=== PATIENT | female | born 2000 | race Caucasian/White ===

== ENCOUNTER → 2024-11-09 | Outpatient (CLI) | payer BC, SELFPAY ==
[2024-11-09 15:13] LABS: Misc Send Out* See Sep Rpt
[2024-11-09 15:15] LABS: Collection Type, Urine Clean Catch; RBC,Urine 0 /hpf (0-3)
[2024-11-09 16:03] LABS: Basophils % (Auto) 0 % (0-2.5); Eosinophils # (Auto) 0.4 Thou/mm3 (0.0-0.5); Eosinophils % (Auto) 3 % (0-10); Hematocrit 33.2 % (36.0-46.0); Hemoglobin 11.5 g/dL (12.0-16.0); Immature Granulocytes % (Auto) 0 % (0-0); Immature Granulocytes Auto 0.04 Thou/mm3 (0.00-0.00); Lymphocytes # (Auto) 1.8 Thou/mm3 (1.0-4.8); Lymphocytes % (Auto) 16 % (10-50); Mean Corpuscular HGB Conc 34.6 g/dl (31.0-37.0); Mean Corpuscular Hemoglobin 28.8 pg (25.0-35.0); Mean Corpuscular Volume 83 fL (80-100); Monocytes # (Auto) 0.6 Thou/mm3 (0.0-0.8); Monocytes % (Auto) 5 % (0-12); Neutrophils # (Auto) 8.2 Thou/mm3 (1.8-7.7); Neutrophils % (Auto) 74 % (37-80); Nucleated Red Blood Cell % 0 /100 WBC (0); Platelet Count 308 Thou/mm3 (140-440); RDW Standard Deviation 39.7 fL (36.4-46.3)
[2024-11-09 16:20] LABS: Bilirubin,Urine Negative (Negative); Blood,Urine Negative (Negative); Clarity,Urine Clear (Clear/Hazy); Color,Urine Yellow (Lt Yel-Yel); Glucose, Urine Negative (Negative); Ketones,Urine Negative (Negative); Leukocyte Esterase,Urine Negative (Negative); Nitrite,Urine Negative (Negative); Protein,Urine Trace (Neg - Trace); Specific Gravity,Urine 1.022 (1.001-1.035); Squamous Epithelial Cell,Urine 1 /hpf (0-5); Urobilinogen,Urine Negative mg/dL (0.0-1.0); WBC,Urine < 1 /hpf (0-5)
[2024-11-09 16:22] LABS: Glucose Estimated Average 94 mg/dL (80-131); Hemoglobin A1C 4.9 % Hgb (4.8-6.0)
[2024-11-09 16:31] LABS: Amphetamine/Methamp Scrn,U Negative (Negative); Barbiturate Screen,Urine Negative (Negative); Benzodiazepines Screen,Urine Negative (Negative); Benzoylecgonine Screen, Ur Negative (Negative); Fentanyl Screen,Urine Negative (Negative); Opiate Screen,Urine Negative (Negative); THC Screen,Urine Negative (Negative)
[2024-11-09 16:33] LABS: Hepatitis B Surface Antigen Non Reactive (Non React); Rubella, IgG Antibody NonReact(Not Immune)
[2024-11-09 16:56] LABS: Beta HCG,Quantitative 19236 mIU/mL (<5.0); Creatinine (Component) 0.6 mg/dL (0.6-1.3); Glucose 121 mg/dL (74-106); eGFR > 60 See Note
[2024-11-10 09:37] LABS: BVAG Candida Negative (Negative); Bacterial Vaginosis Markers Negative (Negative); Candida glabrata Negative (Negative); Candida krusei PCR Negative (Negative); Trichomonas Negative (Negative)
[2024-11-13 19:49] LABS: HCV RNA, PCR <15 NOT DETECTED IU/mL
[2024-11-14 06:40] LABS: HCV RNA, PCR Log IU <1.18 NOT DETECTED Log IU/mL; HIV Ag/Ab, 4th Gen NON-REACTIVE
== END | disposition home or self-care (01) ==
PROVIDERS: PCP Family Medicine; Referring Provider Specialist; Visit Provider Specialist
DX: O98.311 Other infections with a predominantly sexual mode of transmission complicating pregnancy, first trimester (principal); A59.01 Trichomonal vulvovaginitis; O23.591 Infection of other part of genital tract in pregnancy, first trimester; B37.89 Other sites of candidiasis; Z3A.00 Weeks of gestation of pregnancy not specified
CPT/HCPCS: 36415; 80307; 81001; 81514; 82565; 82947; 83036; 84702; 85025; 86762; 86850; 86900; 86901; 87086; 87340; 87389; 87522

== ENCOUNTER → 2024-11-21 | Outpatient (CLI) | payer BC, SELFPAY ==
[2024-11-21 09:28] LABS: Quantiferon-TB* See Sep Rpt
== END | disposition home or self-care (01) ==
LOC: COPL 08:59
PROVIDERS: PCP Specialist; Referring Provider Specialist; Visit Provider Specialist
DX: Z3A.00 Weeks of gestation of pregnancy not specified (principal)
CPT/HCPCS: 86480

== ENCOUNTER → 2025-01-12 | Outpatient (CLI) | payer BC, SELFPAY ==
[2025-01-12 15:39] LABS: Glucose,1 Hour PP 50gm Dose 132 mg/dL (80-140)
== END | disposition home or self-care (01) ==
LOC: COPL 13:38
PROVIDERS: PCP Family Medicine; Referring Provider Physician Assistant Medical; Visit Provider Physician Assistant Medical
DX: Z34.82 Encounter for supervision of other normal pregnancy, second trimester (principal)
CPT/HCPCS: 36415; 82950

== ENCOUNTER → 2025-02-02 | Outpatient (CLI) | payer BC, SELFPAY ==
[2025-02-02 15:59] LABS: Basophils % (Auto) 0 % (0-2.5); Eosinophils # (Auto) 0.3 Thou/mm3 (0.0-0.5); Eosinophils % (Auto) 2 % (0-10); Hematocrit 36.1 % (36.0-46.0); Hemoglobin 11.6 g/dL (12.0-16.0); Immature Granulocytes % (Auto) 1 % (0-0); Immature Granulocytes Auto 0.12 Thou/mm3 (0.00-0.00); Lymphocytes # (Auto) 1.5 Thou/mm3 (1.0-4.8); Lymphocytes % (Auto) 14 % (10-50); Mean Corpuscular HGB Conc 32.1 g/dl (31.0-37.0); Mean Corpuscular Hemoglobin 29.2 pg (25.0-35.0); Mean Corpuscular Volume 91 fL (80-100); Monocytes # (Auto) 0.7 Thou/mm3 (0.0-0.8); Monocytes % (Auto) 7 % (0-12); Neutrophils # (Auto) 8.2 Thou/mm3 (1.8-7.7); Neutrophils % (Auto) 76 % (37-80); Nucleated Red Blood Cell % 0 /100 WBC (0); Platelet Count 295 Thou/mm3 (140-440); RDW Standard Deviation 45.8 fL (36.4-46.3); Red Blood Count 3.97 Miln/mm3 (4.00-5.20); White Blood Count 10.8 Thou/mm3 (3.6-11.0)
[2025-02-02 16:29] LABS: Syphilis Nonreactive (Nonreactive)
== END | disposition home or self-care (01) ==
LOC: SLDO 14:18
PROVIDERS: Referring Provider Physician Assistant Medical; Visit Provider Physician Assistant Medical
DX: Z34.83 Encounter for supervision of other normal pregnancy, third trimester (principal)
CPT/HCPCS: 36415; 85025; 86780

== ENCOUNTER → 2025-03-22 | Outpatient (CLI) | payer BC, MEDICAID, SELFPAY ==
[2025-03-23 11:19] LABS: BVAG Candida Negative (Negative); Bacterial Vaginosis Markers Negative (Negative); Candida glabrata Negative (Negative); Candida krusei PCR Negative (Negative); Trichomonas Negative (Negative)
== END | disposition home or self-care (01) ==
LOC: SLDO 14:27
PROVIDERS: Referring Provider Physician Assistant Medical; Visit Provider Physician Assistant Medical
DX: Z34.83 Encounter for supervision of other normal pregnancy, third trimester (principal)
CPT/HCPCS: 81514

== ENCOUNTER 2025-03-23 13:42 | Inpatient (IN) | payer BC, MEDICAID, SELFPAY ==
[2025-03-23] VITALS (30 sets, daily range): BP systolic 108–136; BP diastolic 69–82; PULSE 70–111; RESP 11–98; TEMP 36.4–36.8; O2SAT 94–99; BMI 29.9
[2025-03-23 14:26] LABS: ROM Kit Exp Date# 111527; ROM Kit Lot # 58102387; ROM Swab Mixed By: EB; Rupture of Fetal Membranes Positive (Negative); Swb Mxed in Solvent 1 min? Yes
--- NOTE | 2025-03-23 14:49 | XR_ITS ---
Examination: Severely limited TECHNIQUE: Limited transabdominal sonographic images pelvis Date and time: March 23, 2025 1513 hours INDICATIONS: Unknown presentation. FINDINGS: Viable intrauterine gestation breech presentation head maternal left Cardiac motion 141 BPM Amniotic fluid index 1.0 cm Cervix 3.3 cm closed IMPRESSION: Viable intrauterine gestation breech presentation
[2025-03-23] MEDS: BETAMET ACET/BETAMET NA PH (Celestone) 6 MG/ML VIAL 12 MG IM (15:10)
[2025-03-23] MEDS: RINGERS LACTATED 1000 ML 1,000 ML 100 ML IV (15:46)
[2025-03-23] MEDS: Ampicillin Inj 2,000 MG in SODIUM CHLORIDE 0.9% (POP) 100 ML 200 MG IV (15:46)
[2025-03-23 16:10] LABS: Basophils # (Auto) 0.0 Thou/mm3 (0.0-0.2); Basophils % (Auto) 0 % (0-2.5); Eosinophils # (Auto) 0.2 Thou/mm3 (0.0-0.5); Eosinophils % (Auto) 2 % (0-10); Hematocrit 33.0 % (36.0-46.0); Hemoglobin 11.4 g/dL (12.0-16.0); Immature Granulocytes Auto 0.06 Thou/mm3 (0.00-0.00); Lymphocytes # (Auto) 2.1 Thou/mm3 (1.0-4.8); Lymphocytes % (Auto) 19 % (10-50); Mean Corpuscular HGB Conc 34.5 g/dl (31.0-37.0); Mean Corpuscular Hemoglobin 28.4 pg (25.0-35.0); Mean Corpuscular Volume 82 fL (80-100); Monocytes # (Auto) 0.9 Thou/mm3 (0.0-0.8); Monocytes % (Auto) 8 % (0-12); Neutrophils # (Auto) 7.4 Thou/mm3 (1.8-7.7); Neutrophils % (Auto) 70 % (37-80); Nucleated Red Blood Cell # 0.00 Thou/mm3 (0.00-0.00); Nucleated Red Blood Cell % 0 /100 WBC (0); Platelet Count 341 Thou/mm3 (140-440); RDW Standard Deviation 39.6 fL (36.4-46.3); Red Blood Count 4.02 Miln/mm3 (4.00-5.20); White Blood Count 10.5 Thou/mm3 (3.6-11.0)
--- NOTE | 2025-03-23 16:40 | PD.LDHP ---
Documentation for date of: 03/23/25 OB Labor/Induct. HPI History of Present Illness Chief complaint: Breech, ROM : 1 Para: 0 Term pregnancies: 0 pregnancies: 0 Living children: 0 History of Abortions: Spontaneous and Elective: 0 History of Vaginal deliveries: 0 History of sections: No History of : No CHULA: 04/15/25 Gestational Age (weeks): 36 Gestational Age (days): 5 History of present illness: Shonda Smith is a 24-year-old at 36 weeks and 5 days gestation who presents to labor and delivery triage with complaints of leaking fluid. On evaluation, the patient was noted to have ruptured membranes, which was confirmed through amnisure. The patient reports that at her last ultrasound, the fetus was found to be in a breech position. She had a Maternal- Medicine (MFM) ultrasound on March 13, 2025, where she was informed that the fetus was breech and the estimated weight was small. The patient has been receiving care with Dr. Cespedes at [facility]. Her record is otherwise unremarkable, with negative trisomy screening and male gender identified on non-invasive testing (NIPT). The patient's obstetric history includes: - GPAL: A0 L0 - Current : - Gestational age: 36 weeks and 5 days - Estimated due date: April 15, 2025 - Ruptured membranes confirmed The patient is currently taking Pepcid, Bicitra, and Ancef. ROS: Genitourinary: Positive for leaking of fluid. Negative except as stated above, limited to OB and pertinent complaints. History of Present Adequate Care: Yes Labs Labs: Positive: Rubella Titre and Negative: RPR, Hepatitis B, HIV, Chlamydia and Gonorrhea Past Medical History Surgical History SURGICAL: Negative Section Meds Home Medications and Allergies Allergies Allergy/AdvReac Type Severity Reaction Status Date / Time No Known Allergies Allergy Verified 03/23/25 14:51 OB Exam Physical Exam Vital signs: Temp Pulse Resp BP Pulse Ox 98.2 F 81 16 123/77 99 03/23/25 13:50 03/23/25 13:55 03/23/25 13:50 03/23/25 13:55 03/23/25 14:55 Constitutional Constitutional: no acute distress Routine HEENT Exam Head: Present normocephalic and atraumatic Eye: Present EOMI and PERRL ENT: Present mucous membranes moist Routine Neck Exam Neck: Present supple and trachea midline Routine Cardiovascular Exam Cardiovascular: Present RRR Routine Abdominal Exam Abdominal: Present soft and normoactive bowel sounds Detailed Labor and Delivery Exam Dilation (cm): 1 Presentation: Breech Baseline heart rate: 145 monitor accelerations: 15x15 monitor decelerations: None Routine Extremities Exam Extremities: Present full ROM Routine Skin Exam Skin: Present intact, dry and warm Routine Neurological Exam Neurological: Present alert, oriented X3 and CN II-XII intact Routine Psychiatric Exam Psychiatric: Present normal affect and normal thought process OB Results Labs 03/23/25 15:27 OB Assessment & Plan Assessment and Plan (1) Breech presentation of fetus: Status: Acute (2) Spontaneous rupture of membranes: Status: Acute Assessment and plan: Premature Rupture of Membranes (PROM) with Breech Presentation at 36 weeks 5 days: - Confirmed ruptured membranes via amnisure test - Last ultrasound showed breech presentation, reconfirmed by MFM on 03/13/2025 - Cervical exam reveals 1 cm dilation - heart tones are category one - Delivery via primary section indicated due to gestational age and breech presentation Plan: - Admit to inpatient status for primary section - IV access with lactated Ringer's solution at 125 mL/hr - Preoperative labs: * CBC * Type and screen * RPR - Preoperative medications: * Famotidine (Pepcid) * Sodium citrate (Bicitra) * Cefazolin (Ancef) - Planned spinal anesthesia - Schedule for operating room
[2025-03-23] MEDS: CITRIC ACID/SODIUM CITR 15 ML UDC (BICITRA) 30 ML PO (17:02)
[2025-03-23] MEDS: FAMOTIDINE INJ 10 MG/ML VIAL 2 ML 20 MG IV (17:02)
[2025-03-23] MEDS: ceFAZolin/D5W 2 GM IV 2 GM/100 ML BAG IV (17:02)
[2025-03-23 17:08] LABS: Syphilis Nonreactive (Nonreactive)
--- NOTE | 2025-03-23 18:25 | ESOP_ITS ---
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 The patient was brought to the operating room and identified with two patient identifiers. She was placed in the supine position, and spinal anesthesia was administered. After confirming adequate anesthesia, the abdomen and perineum were prepped and draped in the usual sterile fashion. A Sibley catheter was inserted for continuous bladder drainage. A low transverse (Pfannenstiel) skin incision was made using a scalpel and carried through subcutaneous tissue to the rectus fascia. The previous scar was identified and excised in its entirety. The fascia was incised transversely and dissected off the rectus muscles both superiorly and inferiorly. The rectus bellies were in the midline, and the peritoneum was entered bluntly with the surgeon?s finger. The peritoneal opening was extended to allow adequate exposure. An Nilesh O-ring retractor was placed for optimal visualization. The lower uterine segment was palpated, and the bladder flap was reflected inferiorly. A low transverse uterine incision (Gerard Morris) was made with a scalpel and extended bluntly. The amniotic membranes were ruptured, and clear fluid was released. The fetus was noted to be in breech presentation. The was delivered by breech extraction without difficulty. The shoulders and head were delivered smoothly with gentle traction. The umbilical cord was doubly clamped and cut, and the infant was handed to the awaiting team. Cord gases were obtained. The placenta was delivered with gentle traction on the cord. The uterine cavity was cleared of membranes and clots. The hysterotomy angles were secured with Allis clamps. Persistent bleeding was noted from the left uterine artery. Hemostasis was achieved with placement of compression sutures using 0 Vicryl. The uterine incision was closed in two layers using #1 Monocryl: the first layer was a running locked suture to approximate the myometrium, and the second layer imbricated the serosa and myometrium. Hemostasis was confirmed. The Nilesh retractor was removed. Peritoneal edges and rectus muscles were reapproximated. Rectus fascia was closed with running 0 Vicryl. The subcutaneous tissue was irrigated with warm saline, and bleeding points were cauterized using Bovie electrocautery. Subcutaneous tissue was approximated with 3-0 Vicryl. The skin was closed using 4-0 Monocryl in a subcuticular fashion. A sterile dressing was applied. The patient was cleaned, undraped, and transferred to the recovery room in stable and awake condition. She tolerated the procedure well. All counts were correct ?2. Specimen: none Estimated blood loss (ml): 500 Surgical staff Operation Date: 03/23/25 17:15 <No data on this case meets the specified criteria> Diagnosis Problem List Completed Was Problem List Reviewed/Reconciled?: Yes
[2025-03-23] MEDS: OXYTOCIN in NS 20 units 20 UNIT/1,000 ML BAG 125 UNIT IV (21:40)
[2025-03-23 23:09] LABS: Amphetamine/Metham Scrn,Ur OB Negative (Negative); Benzoylecgonine Screen, Ur OB Negative (Negative); Opiate Screen,Urine OB Negative (Negative); THC Screen,Urine OB Negative (Negative)
[2025-03-24 03:55] VITALS: BP 121/78; PULSE 80; RESP 14; TEMP 36.8; O2SAT 100
[2025-03-24] MEDS: KETOROLAC INJ 30 MG/ML VIAL IVP (05:36)
[2025-03-24] MEDS: ONDANSETRON INJ 2 MG/ML INJ 2 ML 4 MG IV (05:37)
[2025-03-24 06:19] LABS: Basophils # (Auto) 0.0 Thou/mm3 (0.0-0.2); Basophils % (Auto) 0 % (0-2.5); Eosinophils # (Auto) 0.0 Thou/mm3 (0.0-0.5); Eosinophils % (Auto) 0 % (0-10); Hematocrit 36.3 % (36.0-46.0); Hemoglobin 12.2 g/dL (12.0-16.0); Immature Granulocytes Auto 0.13 Thou/mm3 (0.00-0.00); Lymphocytes # (Auto) 1.1 Thou/mm3 (1.0-4.8); Lymphocytes % (Auto) 6 % (10-50); Mean Corpuscular HGB Conc 33.6 g/dl (31.0-37.0); Mean Corpuscular Hemoglobin 29.1 pg (25.0-35.0); Mean Corpuscular Volume 87 fL (80-100); Monocytes # (Auto) 1.0 Thou/mm3 (0.0-0.8); Monocytes % (Auto) 5 % (0-12); Neutrophils # (Auto) 17.2 Thou/mm3 (1.8-7.7); Neutrophils % (Auto) 88 % (37-80); Nucleated Red Blood Cell # 0.00 Thou/mm3 (0.00-0.00); Nucleated Red Blood Cell % 0 /100 WBC (0); Platelet Count 339 Thou/mm3 (140-440); RDW Standard Deviation 40.6 fL (36.4-46.3); Red Blood Count 4.19 Miln/mm3 (4.00-5.20); White Blood Count 19.5 Thou/mm3 (3.6-11.0)
--- NOTE | 2025-03-24 06:31 | PD.LDDELS ---
Data (Lama) Data Hx Section: No : 1 Term: 0 : 0 Livin Abortions: Spontaneous & Theraputic: 0 Delivery Data (Lama) Labor Data Initiation of labor: Spontaneous Induction/Augmentation Agent: None ROM date: 03/22/25 ROM time: 12:00 Amniotic membrane rupture type: Spontaneous Amniotic fluid description: Clear Delivery Data Onset of labor date: 03/23/25 Onset of labor time: 17:43 Complete dilation date: 03/23/25 Complete dilation time: 17:43 delivery date: 03/23/25 delivery time: 17:43 Placenta delivery date: 03/23/25 Placenta delivery time: 17:43 Stage 1 total time: Labor - Stage 1 Duration 0 minutes Delivered by: Enrique Sandhu Delivery nurse: Boy Casper RN [place] nurse: MELONIE Price Etl Consultant at delivery: Yes (Ruben) Support person(s) at delivery: FOB Delivery Method Delivery method: Low Transverse Presentation: Breech Anesthesia Type Anesthesia Type: Spinal Anesthesia type: Spinal Placenta Placenta delivery description: Manual Removal Cord blood sent to lab: Yes cord blood collection: Cord Blood Type [place] Data (Lama) Data order: 1 [place]'s gender: Male Identification band number: [id number] weight (gms): 2470 g Weight (pounds): 5 lbs and 7.1 ozs length: 49.53 cm 1 minute: 8 5 minutes: 9
[2025-03-24 07:57] VITALS: BP 106/71; PULSE 83; RESP 18; TEMP 36.9; O2SAT 96
[2025-03-24] MEDS: SIMETHICONE 80 MG CHEW PO (08:34)
[2025-03-24] MEDS: DOCUSATE SOD 100 MG CAPSULE PO (08:34)
--- NOTE | 2025-03-24 10:34 | ESPR_ITS ---
Subjective Subjective Interval history: Patient doing well overall. Visited baby in NICU this morning. Pain is well controlled. She is ambulating no lightheadedness/dizziness. Voiding spontaneously since perales was removed, no issues. Tolerating regular diet without nausea/vomiting. No fevers/chills, no CP/SOB. Exam Vital Signs Temp Pulse Resp BP Pulse Ox O2 Del Method 98.5 F 83 18 106/71 96 Room Air 03/24/25 07:57 03/24/25 07:57 03/24/25 07:57 03/24/25 07:57 03/24/25 07:57 03/24/25 07:57 Narrative Exam General: well developed, well nourished, no acute distress, conversant Cardiac: normal heart rate Lungs: breathing without distress Abdomen: soft, post-gravid, non-tender, no rebound or guarding, pfannenstiel incision covered by dry/clean/intact prineo bandage. Incision well reapproximated. No erythema, drainage or induration. Fundus firm at u-2cm. Extremities: no pain with palpation of calves, trace edema of BLE Objective Labs 03/24/25 05:36 Labs: Laboratory Results - last 24 hr 03/23/25 03/23/25 03/23/25 14:15 15:27 22:30 WBC 10.5 RBC 4.02 Hgb 11.4 L Hct 33.0 L MCV 82 MCH 28.4 MCHC 34.5 RDW Std Deviation 39.6 Plt Count 341 Neut % (Auto) 70 Lymph % (Auto) 19 Wheeler % (Auto) 8 Eos % (Auto) 2 Baso % (Auto) 0 Neut # (Auto) 7.4 Lymph # (Auto) 2.1 Wheeler # (Auto) 0.9 H Eos # (Auto) 0.2 Baso # (Auto) 0.0 Immature Gran # (Auto) 0.06 H Absolute Nucleated RBC 0.00 Immature Gran % 1 H Nucleated RBC % 0 Membrane Rupture Positive A Urine Opiates Screen Negative U Amphetamin/Meth Scrn Negative U Cocaine Metab Screen Negative U Marijuana (THC) Screen Negative Syphilis Serology Nonreactive Blood Type A Positive Antibody Screen NEGATIVE Blood Bank Wristband ID Yes 03/24/25 05:36 WBC 19.5 H D RBC 4.19 Hgb 12.2 Hct 36.3 MCV 87 MCH 29.1 MCHC 33.6 RDW Std Deviation 40.6 Plt Count 339 Neut % (Auto) 88 H Lymph % (Auto) 6 L Wheeler % (Auto) 5 Eos % (Auto) 0 Baso % (Auto) 0 Neut # (Auto) 17.2 H Lymph # (Auto) 1.1 Wheeler # (Auto) 1.0 H Eos # (Auto) 0.0 Baso # (Auto) 0.0 Immature Gran # (Auto) 0.13 H Absolute Nucleated RBC 0.00 Immature Gran % 1 H Nucleated RBC % 0 Membrane Rupture Urine Opiates Screen U Amphetamin/Meth Scrn U Cocaine Metab Screen U Marijuana (THC) Screen Syphilis Serology Blood Type Antibody Screen Blood Bank Wristband ID Assessment & Plan Problem List (1) delivery delivered: Status: Acute Assessment and plan: Shonda is a 24yo [id number] s/p uncomplicated PLTCS after presenting with PPROM at 36w5d having breech presentation, doing well on POD 1. Vitals wnl, benign exam. Hemodynamically stable with no evidence of infection. Appropriate change in H/H. Plan: -Continue routine /post-op care -Due to void met -Regular diet -motrin 800mg PO Q8hr, norco 5/325mg PO Q6hr prn pain -Encourage ambulation and use of IS -Anticipate discharge home tomorrow if meeting all milestones (2) Breech presentation of fetus: Status: Acute (3) Spontaneous rupture of membranes: Status: Acute Time Spent With Patient Time: Total time spent is greater than 50% in coordination of care (as documented) at patient's floor/unit and/or counseling patient:
[2025-03-24 12:45] VITALS: BP 108/72; PULSE 89; RESP 16; TEMP 36.7; O2SAT 97
[2025-03-24] MEDS: IBUPROFEN TAB 400 MG TABLET 800 MG PO ×2 (14:14→23:31)
[2025-03-24 15:54] VITALS: BP 103/67; PULSE 80; RESP 17; TEMP 36.8; O2SAT 97
[2025-03-24 20:19] VITALS: BP 106/64; PULSE 83; RESP 18; TEMP 36.8; O2SAT 97
[2025-03-25 04:12] VITALS: BP 97/60; PULSE 72; RESP 16; TEMP 36.8; O2SAT 98
--- NOTE | 2025-03-25 07:14 | ESDS_ITS ---
DS: Providers Provider Date of admission: 03/23/25 13:42 Primary care physician: Physician No Primary/Family Admitting Provider: Enrique Sandhu MD Attending Provider on Admission: Enrique Sandhu MD Consults: 03/23/25 19:02 Referral Routine Comment: Attending Provider on DC: Ines Pickett MD Discharging Provider: Ines Pickett MD DS: Diagnosis Discharge Diagnosis (1) delivery delivered: Status: Acute (2) Spontaneous rupture of membranes: Status: Acute (3) Breech presentation of fetus: Status: Acute Problem List Completed Was Problem List Reviewed/Reconciled?: Yes Summary/Hosp Course Brief History: Shonda Smith is a 24-year-old at 36 weeks and 5 days gestation who presents to labor and delivery triage with complaints of leaking fluid. On evaluation, the patient was noted to have ruptured membranes, which was confirmed through amnisure. The patient reports that at her last ultrasound, the fetus was found to be in a breech position. She had a Maternal- Medicine (MFM) ultrasound on March 13, 2025, where she was informed that the fetus was breech and the estimated weight was small. The patient has been receiving care with Dr. Cespedes at [facility]. Her record is otherwise unremarkable, with negative trisomy screening and male gender identified on non- invasive testing (NIPT). The patient's obstetric history includes: - GPAL: A0 L0 - Current : - Gestational age: 36 weeks and 5 days - Estimated due date: April 15, 2025 - Ruptured membranes confirmed Shonda is doing well on POD 2 s/p uncomplicated PLTCS after presenting with PPROM at 36w5d having breech presentation. She has had an uncomplicated post- operative course, meeting all milestones and feels ready for discharge home. She is ambulating without lightheadedness, tolerating regular diet no n/v, spontaneously voiding without issue. She has no chest pain or shortness of breath. No fevers or chills. Pain well controlled. Vitals normal, benign exam. Hemodynamically stable with no evidence of infection. Post-op Hgb 12.2. Peripartum Data Delivery Method: Low Transverse Procedures: Procedures Operation Date: 03/23/25 17:15 Actual Procedure Side Surgeon p in OB Not Applicable Enrique Sandhu MD Status at Discharge Functional status at discharge: independent ambulation Overall status at discharge: patient is back to baseline Time Spent with Patient Time attestation: Total time spent providing and/or coordinating discharge services: Exam Vital Signs Temp Pulse Resp BP Pulse Ox O2 Del Method 98.2 F 72 16 97/60 98 Room Air 03/25/25 04:12 03/25/25 04:12 03/25/25 04:12 03/25/25 04:12 03/25/25 04:12 03/25/25 04:12 Narrative Exam General: well developed, well nourished, no acute distress, conversant Cardiac: normal heart rate Lungs: breathing without distress Abdomen: soft, post-gravid, non-tender, no rebound or guarding, pfannenstiel incision covered by dry/clean/intact prineo bandage. Incision well reapproximated. No erythema, drainage or induration. Fundus firm at u-2cm. Extremities: no pain with palpation of calves, trace edema of BLE Discharge Plan Plan Patient Disposition: HOME (Self Care) Patient condition on transfer: Stable Prescriptions/Referrals Prescriptions/Med Rec: New hydrocodone-acetaminophen 5-325 mg Tablet 1 tab PO Q6H MDD 4 tablets PRN (Reason: Patient rated pain 7 to 8) 10 Days Qty: 12 0RF docusate sodium 100 mg Capsule 100 mg PO BID 10 Days Qty: 20 0RF ibuprofen 800 mg tablet 800 mg PO Q8HR PRN (Reason: Pain Scale 4-6 (Moderate) 10 Days Qty: 30 0RF Referrals: No Primary/Family,Physician [Primary Care Provider] - Patient/Caregiver Discharge Instructions Discharge Activity: activity as tolerated and other Other Discharge Activity Instructions:: vaginal rest and no heavy lifting more than 10 pounds for 6 weeks[address] No [address] while taking narcotic. Keep incision clean and dry, do not submerge. Other Discharge Diet Instructions: regular Education Materials: C Section Dc Print Language: French Activity Restrictions/Additional Instructions: follow up with your OBGYN in 1 week for bandage removal, call clinic for appointment Stand Alone Forms: Shruthi Award Info., Patient Portal Info Letter, Work/Release Restrictions Discharge Order Discharge Orders: Discharge (Routine); Ordered 03/25/25 Ordered By: Ines Picektt Planned Discharge Date 03/25/25 (3) Breech presentation of fetus Qualifiers: Fetus number: single or unspecified fetus Qualified Code(s): O32.1XX0 - Maternal care for breech presentation, not applicable or unspecified
[2025-03-25 08:00] VITALS: BP 115/65; PULSE 77; RESP 17; TEMP 36.7; O2SAT 98
[2025-03-25] MEDS: DOCUSATE SOD 100 MG CAPSULE PO (08:55)
[2025-03-25] MEDS: IBUPROFEN TAB 400 MG TABLET 800 MG PO (08:55)
--- NOTE | 2025-03-25 12:30 | PC.NURSE ---
Cleared by Eboni from director of social media marketing
== END 2025-03-25 13:55 | disposition home or self-care (01) | DRG 788 ==
LOC: S4SX 15:20 → S4NX 18:06 → S4SX 03-26 07:57
PROVIDERS: Admitting Provider Obstetrics & Gynecology; Visit Provider Obstetrics & Gynecology
PROC: 10D00Z1 Extraction of Products of Conception, Low, Open Approach (ICD-10-PCS; CPT 59514; principal; 2025-03-23 17:00)
DX: O32.1XX0 Maternal care for breech presentation, not applicable or unspecified (principal); O42.013 Preterm premature rupture of membranes, onset of labor within 24 hours of rupture, third trimester; Z3A.36 36 weeks gestation of pregnancy; Z37.0 Single live birth
CPT/HCPCS: 36415; 59025; 59409; 59899; 76815; 80307; 84112; 85025; 86780; 86850; 86900; 86901; 94762; A4314; A4649; J0290; J0689; J0702; J1885; J2250; J2274; J2371; J2405; J2590; J3490; J7120; A9270; J2270